=== PATIENT | male | born 1975 | race Caucasian/White ===

== ENCOUNTER 2018-12-14 17:07 | Emergency (ER) | payer OTHER ==
[~2018-12-14] VITALS: Ht 185.4 cm; Wt 140.6 kg
[2018-12-14 17:19] LABS: URINE BILIRUBIN NEGATIVE (Negative); URINE BLOOD NEGATIVE (Negative); URINE CLARITY CLEAR; URINE COLOR YELLOW; URINE GLUCOSE-RANDOM NEGATIVE (Negative); URINE KETONES NEGATIVE (Negative); URINE LEUKOCYTES-REFLEX NEGATIVE (Negative); URINE NITRITE-REFLEX NEGATIVE (Negative); URINE PROTEIN NEGATIVE (Negative); URINE SPECIFIC GRAVITY 1.015 (1.005-1.030); URINE UROBILINOGEN 0.2 E.U./dl (0.2-1.0)
[2018-12-14] MEDS ORDERED: ZOLOFT50 MG PO (17:20)
[2018-12-14] MEDS ORDERED: COZAAR 25 MG TA25 M1 PO (17:20)
[2018-12-14] MEDS ORDERED: CENTRUM SILVER1 EAC2 PO (17:21)
[2018-12-14] MEDS ORDERED: VITAMIN D2000 UNIT PO (17:21)
[2018-12-14] MEDS ORDERED: DEPO-TESTO100 MG/1 M IM (17:21)
[2018-12-14 17:32] LABS: ABSOLUTE LYMPHOCYTES 1.5 thou/uL (0.8-5.3); ABSOLUTE MONOCYTES 0.5 thou/uL (0.0-1.2); ABSOLUTE NEUTROPHILS 9.7 thou/uL (1.6-8.1); BASOPHILS 0.4 %; EOSINOPHILS 0.4 %; HEMOGLOBIN 15.5 gm/dL (14.0-18.0); LYMPHOCYTES 12.6 %; MCH 30.1 pg (26.0-34.0); MCHC 34.4 g/dL (28.0-37.0); MCV 87.6 fL (80.0-100.0); MONOCYTES 4.2 %; NUCLEATED RBCS 0 /100WBC; PLATELET COUNT* 218 thou/uL (150-400); POLYS 82.4 %; RBC 5.14 mil/uL (4.50-6.00); RDW-CV 13.4 % (10.5-14.5); WBC 11.7 thou/uL (4.0-11.0)
[2018-12-14 17:46] LABS: ALBUMIN 3.8 g/dL (3.4-5.0); CALCIUM 8.8 mg/dL (8.5-10.1); POTASSIUM 3.8 mmol/L (3.5-5.1); TOTAL BILIRUBIN 0.6 mg/dL (<0.1-1.0); TOTAL PROTEIN 7.5 g/dL (6.4-8.2)
[2018-12-14] MEDS ORDERED: FLAGYL500 M1 PO (18:58)
[2018-12-14] MEDS ORDERED: CIPRO500 M1 PO (18:58)
[2018-12-14] MEDS ORDERED: NORCO 5-325 TA1 EACH PO (18:59)
[2018-12-14 21:20] VITALS: BP 165/92
== END 2018-12-14 21:20 | disposition home or self-care (01) ==
LOC: M.ERS 17:07
PROVIDERS: Nurse Practitioner Family
DX: K57.92 Diverticulitis of intestine, part unspecified, without perforation or abscess without bleeding (principal); F17.210 Nicotine dependence, cigarettes, uncomplicated